=== PATIENT | female | born 1990 ===

== ENCOUNTER 2018-02-27 15:06 | Emergency (ER) | payer OTHER ==
[~2018-02-27] VITALS: Ht 154.9 cm; Wt 54.4 kg
== END 2018-02-27 17:22 | disposition home or self-care (01) ==
LOC: ER 15:06
DX: S80.812A Abrasion, left lower leg, initial encounter (principal); S80.811A Abrasion, right lower leg, initial encounter; M54.2 Cervicalgia; M54.6 Pain in thoracic spine; F17.200 Nicotine dependence, unspecified, uncomplicated; V49.9XXA Car occupant (driver) (passenger) injured in unspecified traffic accident, initial encounter
CPT/HCPCS: 71045; 72040; 99284-25